=== PATIENT | male | born 1955 | race Caucasian/White ===

== ENCOUNTER 2018-01-19 06:25 | Day surgery (SDC) | payer OTHER ==
[~2018-01-19 06:25] MED LIST: BAYER ASPIRIN325 MG PO; CLONAZEPAM0.5 MG PO; INSPRA25 MG PO; LIPITOR20 MG PO; LIPITOR40 MG PO; METOPROLOL SUCC25 MG PO; OMEGA 3 FISH OI1 CAP PO; PEPCID40 MG PO; PLAVIX75 MG PO; ZETIA10 MG PO
[2018-01-19] MEDS ORDERED: MIRALAX17 GM PO (13:45)
[2018-01-19] MEDS ORDERED: PERCOCET 5-3251 EACH PO (13:45)
[2018-01-19] MEDS ORDERED: NEURONTIN300 MG PO (13:45)
== END 2018-01-19 17:20 | disposition home or self-care (01) ==
LOC: CIR.AMB 06:25
DX: K42.0 Umbilical hernia with obstruction, without gangrene (principal)

== ENCOUNTER 2020-01-26 07:00 | Day surgery (SDC) | payer OTHER ==
[~2020-01-26 07:00] MED LIST changes: +MIRALAX17 GM PO; +NEURONTIN300 MG PO; +PERCOCET 5-3251 EACH PO
== END 2020-01-26 11:10 | disposition home or self-care (01) ==
LOC: AMB-ENDOS 07:00 → CIR.AMB 11:45
PROVIDERS: ATTEND Colon & Rectal Surgery
DX: K62.89 Other specified diseases of anus and rectum (principal); K64.1 Second degree hemorrhoids